=== PATIENT | male | born 1995 | race Caucasian/White ===

== ENCOUNTER 2022-06-04 19:51 | Emergency (ER) | payer OTHER ==
[2022-06-04] MEDS ORDERED: SILVER NITRATE 75% APPLIC STCK 1 PKT EACH ONE ×2 (20:12→20:27)
[2022-06-04 20:21] VITALS: BP 150/84; PULSE 110; RESP 20; TEMP 97.8; BMI 39.5
== END 2022-06-04 20:38 | disposition home or self-care (01) ==
LOC: FER 19:51
DX: R04.0 Epistaxis (principal)
CPT/HCPCS: 99282-25